=== PATIENT | female | born 1945 | race Caucasian/White ===

== ENCOUNTER 2021-10-09 05:42 | Day surgery (SDC) | payer MEDICARE ==
[2021-10-09] MEDS ORDERED: Lactated Ringers 1,000 ML IV SCH (06:30)
[2021-10-09] MEDS ORDERED: DIPRIVAN 200 MG/20 ML IV ONE (07:01)
[2021-10-09] MEDS ORDERED: Xylocaine-Mpf 2% 5 Ml Vial ONE (07:01)
[2021-10-09] MEDS ORDERED: Versed 2 MG/2 ML Injection ONE (07:01)
[2021-10-09 08:01] VITALS: O2SAT 97
[2021-10-09 08:20] VITALS: BP 151/56; PULSE 59
--- NOTE | 2021-10-09 10:37 | OP ---
SURGERY DATE/TIME: 10/09/2021 0700 PREOPERATIVE DIAGNOSIS: Screening exam. POSTOPERATIVE DIAGNOSIS: Normal colon. PROCEDURE: Colonoscopy. SURGEON: Dr. Bardales. ANESTHESIA: MAC. Medications given by anesthesia department. HISTORY: The patient is a 76-year-old white female presenting now for screening examination. She was appraised of the risks of the procedure including the risk of perforation, phlebitis, untoward reaction to medication, bleeding and missed lesions. The patient verbalized her understanding and desired to have the procedure performed. DESCRIPTION OF PROCEDURE: The patient was given the medications by the anesthesia department. She had continuous pulse oximetry, ECG monitoring, intermittent blood pressure monitoring during the examination. She was placed in the left lateral decubitus position. A digital rectal examination was performed and revealed normal anal sphincter tone and no masses. The flexible Olympus pediatric colonoscope was used to intubate the rectum. A view of the colon was developed sequentially to the cecum. Upon insertion and withdrawal, no mucosal lesions being encountered, the scope was removed from the patient who tolerated the procedure well and was sent back to OP recovery in good condition. The prep was noted to be fair to good.
== END 2021-10-09 08:33 | disposition home or self-care (01) ==
LOC: SDC 05:42
PROVIDERS: ATTEND Family Medicine
DX: Z12.11 Encounter for screening for malignant neoplasm of colon (principal)
CPT/HCPCS: 99100; J2250; J2704

== ENCOUNTER 2024-09-12 23:02 | Emergency (ER) | payer MEDICARE ==
--- NOTE | 2024-09-13 00:24 | ERPHSYRPT ---
- History of Present Illness Time Seen by Provider: 09/13/24 00:24 Source: patient, family Exam Limitations: no limitations Physician History: Pt had onset of pain left foot at great toe after direct trauma. No other injuries or symptoms. Discussed with pt and available family risks and benefits of testing/Tx including ,foot x-ray and they wish to proceed so these are ordered. Results discussed with pt and available family. Method of Injury: direct blow Occurred: just prior to arrival Quality: constant, sharpness, throbbing Severity of Pain-Max: moderate Severity of Pain-Current: moderate Lower Extremities Pain: foot: left Modifying Factors: Improves With: cold therapy, immobilization, movement Associated Symptoms: none Allergies/Adverse Reactions: Penicillins Allergy (Severe, Verified 09/13/24 00:29) Hives Home Medications: Simvastatin 10 mg [Zocor 10MG] 10 mg PO DAILY 10/04/21 [History] Ascorbic Acid/Vitamin E/Biotin [Hair Skin Nails-Biotin Gummies] 1 gum PO DAILY 09/13/24 [History] Multivitamin 1 each PO DAILY 09/13/24 [History] [place]-3/Dha/Epa/Fish Oil [Fish Oil Dr 500 mg Softgel] 1 cap PO DAILY 09/13/24 [History] Vitamin B Complex [B Complex] 1 each PO BID 09/13/24 [History] - Review of Systems Constitutional: No Fever, No Chills Eyes: No Symptoms Ears, Nose, & Throat: No Symptoms Respiratory: No Cough, No Dyspnea Cardiac: No Chest Pain, No Edema, No Syncope Abdominal/Gastrointestinal: No Abdominal Pain, No Nausea, No Vomiting, No Diarrhea Genitourinary Symptoms: No Dysuria Musculoskeletal: Injury, Joint Pain, No Back Pain, No Neck Pain Skin: No Rash Neurological: No Dizziness, No Focal Weakness, No Sensory Changes Psychological: No Symptoms Endocrine: No Symptoms Hematologic/Lymphatic: No Symptoms Immunological/Allergic: No Symptoms All Other Systems: Reviewed and Negative - Past Medical History Pertinent Past Medical History: Yes Neurological History: No Pertinent History ENT History: No Pertinent History Cardiac History: High Cholesterol Respiratory History: No Pertinent History Endocrine Medical History: No Pertinent History Musculoskeletal History: No Pertinent History GI Medical History: No Pertinent History History: No Pertinent History Psycho-Social History: No Pertinent History Female Reproductive Disorders: No Pertinent History - Past Surgical History Past Surgical History: Yes Neuro Surgical History: No Pertinent History Cardiac: No Pertinent History Respiratory: No Pertinent History Gastrointestinal: No Pertinent History Genitourinary: No Pertinent History Musculoskeletal: No Pertinent History, Orthopedic Surgery Female Surgical History: Tubal Ligation Other Surgical History: right foot hammertoe repair - Social History Smoking Status: Never smoker Exposure to second hand smoke: No Drug Use: none - Nursing Vital Signs Nursing Vital Signs: Initial Vital Signs Temperature 97.4 F 09/13/24 00:17 Pulse Rate 66 09/13/24 00:17 Respiratory Rate 20 09/13/24 00:17 Blood Pressure 142/68 09/13/24 00:17 O2 Sat by Pulse Oximetry 96 09/13/24 00:17 Pain Scale Pain Intensity 7 - Physical Exam General Appearance: no apparent distress, alert Eyes, Ears, Nose, Throat Exam: moist mucous membranes Neck Exam: non-tender, supple Cardiovascular/Respiratory Exam: chest non-tender, normal breath sounds, regular rate/rhythm, no respiratory distress Gastrointestinal/Abdominal Exam: non-tender, guarding Back Exam: normal inspection, No vertebral tenderness Hips Exam: bilateral: non-tender, normal inspection, normal range of motion, no evidence of injury Legs Exam: bilateral leg: non-tender, normal inspection, normal range of motion, no evidence of injury Knees Exam: bilateral knee: non-tender, normal inspection, normal range of motion, no evidence of injury Ankle Exam: bilateral ankle: non-tender, normal inspection, normal range of motion, no evidence of injury Foot Exam: right foot: non-tender, normal inspection, normal range of motion, no evidence of injury, left foot: bone tenderness, ecchymosis, pain, soft tissue tenderness, swelling DTR - Lower Extremities Exam: knee (R): 2+, knee (L): 2+, ankle (R): 2+, ankle (L): 2+ Neuro/Tendon Exam: normal sensation, normal motor functions, normal tendon functions, no evidence tendon injury Mental Status Exam: alert, oriented x 3, cooperative Skin Exam: normal color, warm, dry Procedures - Splinting Time of Procedure: 01:54 Location of Splint: Left, Foot Type of Splint: Walking Boot/Shoe Splint Applied By: ED Nurse Pre-Proc Neuro Vasc Exam: normal Post-Proc Neuro Vasc Exam: neurovascular intact, good alignment, unchanged from pre-exam - Course Nursing assessment & vital signs reviewed: Yes - Radiology Exams Left Foot X-ray Interpretation: Interpreted by me, Non-displaced Fracture Ordered Tests: Active Orders 24 hr Category Date Time Status FOOT (MINIMUM 3 VIEWS) Stat Exams 09/13/24 00:40 Taken - Progress Progress: improved, re-examined Counseled pt/family regarding: diagnosis, need for follow-up, rad results Medical Desision Making - Independent Historian Additional History obtained from: Family - Discussion of managment Reviewed:: Test results, Need for additional workup Agreed on:: Treatment plan, need for follow-up - Diagnostic Testing Diagnostic test were ordered, analyzed, and reviewed by me: Yes Radiological Interpretation: Interpreted by me - Risk of complications The pt has a mod risk of morbidity or mortality based on: Need for prescription drug management - Departure Clinical Impression: Nondisplaced fracture of left great toe Condition: Good Critical Care Time: No Referrals: SANTI TAYLOR [Primary Care Provider] - Follow up/PCP as directed Instructions: Toe Injury (DC), Toe Fracture ED Additional Instructions: Although we cannot yet confirm a fracture- we suspect this and will treat as though it is a fracture of the base of your great toe. followup with your this week for the final x-ray reading and any indicated additional studies or referrals. return meantime if increased pain, redness, swelling, numbness or any other symptoms of concern. also followup your blood pressure with your
[2024-09-13 00:29] VITALS: TEMP 97.4
[2024-09-13 02:14] VITALS: BP 121/67; PULSE 62; RESP 19; O2SAT 96
--- NOTE | 2024-09-13 08:33 | XRAY ---
Indication: Trauma. Comparison: None 3 nonweightbearing views left foot demonstrates tiny nondisplaced corner fracture base 1st proximal phalanx lateral aspect of uncertain chronicity. Elsewhere osteopenia, old 2nd metatarsal shaft fracture, small posterior/plantar heel spurs, and small heterotopic ossification base 5th metatarsal.
== END 2024-09-13 02:09 | disposition home or self-care (01) ==
LOC: ED 23:02
DX: S92.405A Nondisplaced unspecified fracture of left great toe, initial encounter for closed fracture (principal); E78.5 Hyperlipidemia, unspecified; Z79.899 Other long term (current) drug therapy
CPT/HCPCS: 73630; 99282; 99283